=== PATIENT | female | born 1965 | race Caucasian/White ===

== ENCOUNTER → 2019-11-12 14:26 | Outpatient (CLI) | payer MEDICARE, OTHER, SELFPAY ==
[2019-11-12 14:57] LABS: Blood Urea Nitrogen 12 mg/dL (7-18); Creatinine,Serum 0.84 mg/dL (0.55-1.02); Estimated Glomerular Filt Rate 70 ml/min (>60); GFR (African American) 85 ML/MIN (>60)
--- NOTE | 2019-11-12 14:58 | MR_ITS ---
PROCEDURE: MR LUMBAR SPINE WO/W CON CLINICAL INDICATION: RADICULOPATHY, LUMBAR REGION Low back pain, bilateral leg pain numbness and tingling. Prior back surgery. COMPARISON: No exams were available for comparison TECHNIQUE: Standard multiplanar multiecho sequences are performed without contrast. 3-D MIP and myelographic images are also rendered and reviewed FINDINGS: The spinal cord ends at the T12-L1 level. T11-T12: Unremarkable. T12-L1: Unremarkable. L1-L2: Unremarkable. L2-L3: Unremarkable. L3-L4: Facet ligamentum hypertrophy resulting in bilateral lateral recess and foraminal narrowing. L4-5: Extensive artifact at this level obscuring fine detail. There is 8 mm anterolisthesis of L4. There is bulging disc/disc osteophyte complex with canal stenosis. It is difficult to estimate the degree of stenosis due to the artifact.. The stenosis however does appear severe with canal measuring approximately 6 mm. There has been a prior left laminectomy at this level. Consider CT for further evaluation. Facet hypertrophic changes are present at this level with severe bilateral foraminal and lateral recess narrowing. Post enhanced images suggest some enhancement of the thecal sac at this area however, this may be artifactual seen only on the sagittal images and not the axial images. L5-S1: Minimal bulging disc with facet ligamentum hypertrophy with mild bilateral foraminal narrowing. IMPRESSION: 1. Postsurgical changes with extensive artifact and L4-5 obscuring fine detail. There is 8 mm anterolisthesis of L4. There is bulging disc/disc osteophyte complex with canal stenosis. It is difficult to estimate the degree of stenosis due to the artifact.. The stenosis however does appear severe with canal measuring approximately 6 mm. There has been a prior left laminectomy at this level. Consider CT for further evaluation. Facet hypertrophic changes are present at this level with severe bilateral foraminal and lateral recess narrowing. Post enhanced images suggest some enhancement of the thecal sac at this area however, this may be artifactual seen only on the sagittal images and not the axial images 2. Facet ligamentum hypertrophy at L3-L4 with bilateral lateral recess and foraminal narrowing. 3. No other significant anomalies are evident Dictated by: Gregory Sparks MD 11/14/2019 06:46 Electronically signed by Gregory Sparks MD in [place] 11/14/2019 06:46
== END ==
PROVIDERS: Visit Provider Family Medicine
DX: M54.16 Radiculopathy, lumbar region (principal)
CPT/HCPCS: 36415; 72158; 76376; 82565; 84520; A9576